=== PATIENT | female | born 1965 | race Two or more races ===

== ENCOUNTER 2018-12-07 21:46 | Observation (INO) | payer SELFPAY ==
[2018-12-07] MEDS ORDERED: MORPHINE SULFATE 10 MG/ML INJ IV ONE (22:19)
[2018-12-07] MEDS ORDERED: ONDANSETRON HCL INJ/PF 4 MG/2 ML SDV IV ONE (22:20)
--- NOTE | 2018-12-07 22:22 | ER Document Report ---
ED GI/ - General Chief Complaint: Abdominal Pain Stated Complaint: Abdominal Pain Time Seen by Provider: 12/07/18 22:14 Notes: Patient is a 53-year-old female that comes to the emergency department for chief complaint of sharp pain in her epigastric and right upper quadrant areas of the abdomen. Symptoms started shortly after eating dinner, she was eating shrimp. He states pain started about 6 PM, she vomited. Pain radiates around to her back as well. She denies lower abdominal pain, chest pain, ear/chills, difficulty breathing. She denies any surgeries or diagnosed medical problems other than anxiety. Only medication is for anxiety. She denies smoking, alcohol, recreational drugs. TRAVEL OUTSIDE OF THE [place] IN LAST 30 DAYS: No - Related Data Allergies/Adverse Reactions: No Known Allergies Allergy (Unverified 12/07/18 22:01) Past Medical History - General Information source: Patient - Social History Smoking Status: Never Smoker Frequency of alcohol use: None Drug Abuse: None Lives with: Family Family History: Reviewed & Not Pertinent Psychiatric Medical History: Reports: Hx Anxiety Surgical Hx: Negative - Immunizations Hx Diphtheria, Pertussis, Tetanus Vaccination: Yes Review of Systems - Review of Systems Constitutional: No symptoms reported EENT: No symptoms reported Cardiovascular: No symptoms reported Respiratory: No symptoms reported Gastrointestinal: See HPI Genitourinary: No symptoms reported Female Genitourinary: No symptoms reported Musculoskeletal: No symptoms reported Skin: No symptoms reported Hematologic/Lymphatic: No symptoms reported Neurological/Psychological: No symptoms reported Physical Exam - Vital signs Vitals: Temp Pulse BP Pulse Ox 98.2 F 59 L 148/64 H 100 12/07/18 22:02 12/07/18 22:02 12/07/18 22:02 12/07/18 22:02 - Notes Notes: GENERAL: Alert, appears very uncomfortable HEAD: Normocephalic, atraumatic. EYES: Pupils equal, round, and reactive to light. Extraocular movements intact. ENT: Oral mucosa moist, tongue midline. Oropharynx unremarkable. Airway patent. LUNGS: Clear to auscultation bilaterally, no wheezes, rales, or rhonchi. No respiratory distress. HEART: Regular rate and rhythm. No murmur ABDOMEN: Very tender in the epigastric and right upper quadrant areas with some guarding. Lower abdomen is completely benign. No rigidity or obvious distention. GENITOURINARY: Deferred EXTREMITIES: Moves all 4 extremities spontaneously. No edema, normal radial and dorsalis pedis pulses bilaterally. No cyanosis. BACK: no cervical, thoracic, lumbar midline tenderness. No saddle anesthesia, normal distal neurovascular exam. Moves all extremities in full range of motion. NEUROLOGICAL: Alert and oriented x3. Normal speech. Cranial nerves II through XII grossly intact. SKIN: Warm, dry, normal turgor. No rashes or lesions noted. Course - Re-evaluation Re-evalutation: Patient is Cymro-speaking, I offered staging technician, patient requests her family interpret for her instead. She does speak some Bruneian as well. Initially she is very uncomfortable in appearance, after medications she was reevaluated and is much more comfortable. She does have a lot of pain in the right upper quadrant. CBC, chemistry unremarkable. Lipase unremarkable. Ultrasound showing gallstones, gallbladder wall thickening, pericholecystic fluid, consistent with acute cholecystitis. No other concerning findings. Patient has been kept n.p.o. I discussed with patient, patient given Zosyn. Will discuss with surgicalist for admission and surgery. Patient and family state understanding and agreement with this plan. Discussed with Dr. Costa, patient will be admitted to his service. - Vital Signs Vital signs: Temp Pulse Resp BP Pulse Ox 97.5 F 66 18 118/76 98 12/08/18 03:31 12/08/18 03:31 12/08/18 03:31 12/08/18 03:31 12/08/18 03:31 - Laboratory Result Diagrams: 12/07/18 22:15 12/07/18 22:15 Laboratory results interpreted by me: 12/07/18 12/07/18 22:15 22:31 Potassium 3.5 L Glucose 129 H Urine Glucose (UA) 50 H Urine Ketones 25 H Ur Leukocyte Esterase TRACE H Urine Ascorbic Acid 20 H - EKG Interpretation by Me Additional EKG results interpreted by me: EKG shows sinus rhythm at a rate of 61, no T wave inversions or ST segment changes in consecutive leads. QTc 415. Normal axis. Discharge - Discharge Clinical Impression: Acute cholecystitis Condition: Stable Disposition: ADMITTED OBSERVATION Admitting Provider: Surgicalist Unit Admitted: Surgical Floor
[2018-12-07 22:43] LABS: ABSOLUTE BASOPHILS # (AUTO) 0.1 10^3/uL (0.0-0.2); ABSOLUTE LYMPHOCYTES (AUTO) 2.3 10^3/uL (0.5-4.7); ABSOLUTE MONOCYTES (AUTO) 0.3 10^3/uL (0.1-1.4); ABSOLUTE NEUT (AUTO) 4.7 10^3/uL (1.7-8.2); BASOPHILS % (AUTO) 0.7 % (0-2); EOSINOPHILS % (AUTO) 0.5 % (0-6); HEMATOCRIT 41.1 % (36.0-47.0); LYMPHOCYTES % (AUTO) 30.6 % (13-45); MEAN CORPUSCULAR HEMOGLOBIN 29.1 pg (27.0-33.4); MEAN CORPUSCULAR HGB CONC 33.9 g/dL (32.0-36.0); MEAN CORPUSCULAR VOLUME 86 fl (80-97); MONOCYTES % (AUTO) 4.3 % (3-13); PLATELET COUNT 261 10^3/uL (150-450); RED CELL DISTRIBUTION WIDTH 13.1 % (11.5-14.0); SEGMENTED NEUTROPHILS % (AUTO) 63.9 % (42-78); TOTAL CELLS COUNTED % (AUTO) 100 %; WHITE BLOOD COUNT 7.4 10^3/uL (4.0-10.5)
[2018-12-07 23:09] LABS: APPEARANCE,URINE CLEAR; BILIRUBIN,URINE NEGATIVE (NEGATIVE); COLOR,URINE YELLOW; GLUCOSE, URINE 50 mg/dL (NEGATIVE); KETONES,URINE 25 mg/dL (NEGATIVE); URINE SPECIFIC GRAVITY 1.023
[2018-12-07 23:10] LABS: LEUKOCYTE ESTERASE,URINE TRACE (NEGATIVE); NITRITE,URINE NEGATIVE (NEGATIVE); PROTEIN,URINE NEGATIVE (NEGATIVE); UROBILINOGEN,URINE NEGATIVE mg/dL (<2.0)
[2018-12-07 23:25] LABS: ALANINE AMINOTRANSFERASE 24 U/L (9-52); ALBUMIN 4.3 g/dL (3.5-5.0); ALKALINE PHOSPHATASE 63 U/L (38-126); ANION GAP 9 (5-19); ASPARTATE AMINO TRANSFERASE 24 U/L (14-36); BILIRUBIN,DIRECT 0.2 mg/dL (0.0-0.4); BILIRUBIN,TOTAL 0.7 mg/dL (0.2-1.3); BLOOD UREA NITROGEN 17 mg/dL (7-20); CALCIUM 9.6 mg/dL (8.4-10.2); CARBON DIOXIDE 27 mmol/L (22-30); CHLORIDE 104 mmol/L (98-107); GLUCOSE 129 mg/dL (75-110); LIPASE 110.2 U/L (23-300); POTASSIUM 3.5 mmol/L (3.6-5.0); SODIUM 140.1 mmol/L (137-145); TOTAL PROTEIN 7.3 g/dL (6.3-8.2)
[2018-12-08] MEDS ORDERED: NORMAL SALINE 1000 ML 1,000 ML IV ONE (01:17)
--- NOTE | 2018-12-08 01:29 | RADIOLOGY REPORT (SQ) ---
US ABDOMEN LIMITED EXAM DATE: 12/07/2018 10:20 PM CDT HISTORY: Right upper quadrant pain. COMPARISON: None. TECHNIQUE: Grayscale and color Doppler imaging of the right upper quadrant was performed. FINDINGS: The liver has normal echotexture with a focal 1.9 cm hyperechoic lesion which is nonspecific but may represent a hemangioma. The main portal vein has normal hepatopetal flow. Multiple shadowing gallstones are present. The gallbladder wall thickening measuring 6 mm. There is surrounding pericholecystic fluid. The common bile duct measures 4 mm. The visualized portions of the pancreas are unremarkable. No hydronephrosis or shadowing renal stones are identified. The right kidney is normal in size. The visualized portions of the IVC and aorta are patent. IMPRESSION: 1. Gallstones with gallbladder wall thickening and surrounding pericholecystic fluid, most likely representing acute cholecystitis. 2. 2 cm echogenic lesion in the liver which may represent a hemangioma. This may be confirmed with cross-sectional imaging.
[2018-12-08] MEDS ORDERED: PIPERACILLIN/TAZOBACTAM 3.375 GM VIAL IV ONE (01:35)
[2018-12-08] MEDS ORDERED: NORMAL SALINE 1000 ML 1,000 ML IV PRN (01:45)
[2018-12-08] MEDS ORDERED: DEXTROSE 5%-LACTATED RINGERS 1,000 ML IV PRN (01:48)
[2018-12-08] MEDS ORDERED: MORPHINE SULFATE 10 MG/ML INJ IV PRN ×2 (01:48→11:40)
[2018-12-08] MEDS ORDERED: ONDANSETRON HCL INJ/PF 4 MG/2 ML SDV IV PRN (01:48)
--- NOTE | 2018-12-08 07:54 | PDOC H&P ---
History of Present Illness Admission Date/PCP: 12/08/18 02:08 Patient complains of: Right upper quadrant pain, nausea, vomiting History of Present Illness: KANDI BLACK is a 53 year old female with a 2-day history of right upper quadrant pain, nausea, and vomiting. Her pain began after eating. Her vomiting has been intractable. Her pain is sharp and stabbing. At its worst it is 10 out of 10. Her pain is improved after getting morphine. Eating made the pain worse. Her pain is localized to the right upper quadrant. She denies any radiation. She denies any other significant medical comorbidity. Patient presented to the emergency department where a right upper quadrant ultrasound was performed. This showed acute cholecystitis. The patient is a [place] speaker, however she reports that she understands Portuguese very well. Past Medical History Psychiatric Medical History: Reports: General Anxiety Disorder Social History Lives with: Family Smoking Status: Never Smoker Hx Recreational Drug Use: No Hx Prescription Drug Abuse: No Family History Family History: Reviewed & Not Pertinent Parental Family History Reviewed: Yes Children Family History Reviewed: Yes Sibling(s) Family History Reviewed.: Yes Medication/Allergy Allergies/Adverse Reactions: No Known Allergies Allergy (Unverified 12/07/18 22:01) Review of Systems Constitutional: ABSENT: anorexia, chills, fatigue, fever(s), headache(s) Eyes: ABSENT: visual disturbances Ears: ABSENT: hearing changes Nose, Mouth, and Throat: ABSENT: mouth pain, sore throat Cardiovascular: ABSENT: chest pain, dyspnea on exertion Respiratory: ABSENT: cough Gastrointestinal: PRESENT: abdominal pain, bloating, nausea, vomiting. ABSENT: hematemesis, hematochezia, melena Genitourinary: ABSENT: dysuria Musculoskeletal: ABSENT: back pain Integumentary: ABSENT: rash Neurological: ABSENT: confusion, convulsions, dizziness Psychiatric: PRESENT: anxiety. ABSENT: depression Hematologic/Lymphatic: ABSENT: easy bleeding, easy bruising Physical Exam Vital Signs: Temp Pulse Resp BP Pulse Ox 97.5 F 66 18 118/76 98 12/08/18 03:31 12/08/18 03:31 12/08/18 03:31 12/08/18 03:31 12/08/18 03:31 Intake & Output 12/07/18 12/08/18 12/09/18 06:59 06:59 06:59 Weight 53.2 kg General appearance: PRESENT: no acute distress, cooperative Head exam: PRESENT: atraumatic, normocephalic Eye exam: PRESENT: EOMI, PERRLA. ABSENT: scleral icterus Mouth exam: PRESENT: moist, neck supple Neck exam: ABSENT: meningismus, tenderness, thyromegaly, tracheal deviation Respiratory exam: PRESENT: clear to auscultation jonathon, unlabored. ABSENT: tachypnea, wheezes Cardiovascular exam: PRESENT: RRR Pulses: PRESENT: normal radial pulses Vascular exam: PRESENT: normal capillary refill GI/Abdominal exam: PRESENT: Musa's sign, soft, tenderness - right upper quadrant. ABSENT: distended, firm Rectal exam: PRESENT: deferred Extremities exam: ABSENT: clubbing Musculoskeletal exam: ABSENT: deformity Neurological exam: PRESENT: alert, awake, oriented to person, oriented to place, oriented to time, oriented to situation Psychiatric exam: ABSENT: agitated, anxious, depressed Focused psych exam: ABSENT: delusional Skin exam: ABSENT: cyanosis, erythema, jaundice Results Laboratory Results: 12/07/18 22:15 12/07/18 22:15 12/07/18 12/07/18 12/07/18 22:15 22:15 22:31 WBC 7.4 RBC 4.80 Hgb 14.0 Hct 41.1 MCV 86 MCH 29.1 MCHC 33.9 RDW 13.1 Plt Count 261 Seg Neutrophils % 63.9 Lymphocytes % 30.6 Monocytes % 4.3 Eosinophils % 0.5 Basophils % 0.7 Absolute Neutrophils 4.7 Absolute Lymphocytes 2.3 Absolute Monocytes 0.3 Absolute Eosinophils 0.0 Absolute Basophils 0.1 Sodium 140.1 Potassium 3.5 L Chloride 104 Carbon Dioxide 27 Anion Gap 9 BUN 17 Creatinine 0.65 Est GFR ( Amer) > 60 Est GFR (Non-Af Amer) > 60 Glucose 129 H Calcium 9.6 Total Bilirubin 0.7 AST 24 ALT 24 Alkaline Phosphatase 63 Total Protein 7.3 Albumin 4.3 Lipase 110.2 Urine Color YELLOW Urine Appearance CLEAR Urine pH 7.0 Ur Specific [place] 1.023 Urine Protein NEGATIVE Urine Glucose (UA) 50 H Urine Ketones 25 H Urine Blood NEGATIVE Urine Nitrite NEGATIVE Ur Leukocyte Esterase TRACE H Urine WBC (Auto) 4 Urine RBC (Auto) 5 Impressions: Abdomen Ultrasound 12/07/18 22:20 IMPRESSION: 1. Gallstones with gallbladder wall thickening and surrounding pericholecystic fluid, most likely representing acute cholecystitis. 2. 2 cm echogenic lesion in the liver which may represent a hemangioma. This may be confirmed with cross-sectional imaging. Assessment & Plan - Diagnosis (1) Acute cholecystitis Is this a current diagnosis for this admission?: Yes - Plan Summary Plan Summary: This is a 53-year-old female with right upper quadrant pain, nausea, vomiting, and ultrasound evidence of acute cholecystitis. The patient reports that she understands Portuguese very well. I have asked her if she would like the assistance of a mycologist, and she declined. I have discussed her medical care at length. I have recommended cholecystectomy as treatment for her acute cholecystitis. The patient has agreed to this. I will start the patient on Zosyn. Risks/benefits discussed, informed consent obtained, and all questions answered.
[2018-12-08] MEDS ORDERED: BUPIVACAINE HCL 0.25 % INJ/PF (2.5 MG/1 ML) 30 ML VIAL ONE (08:43)
[2018-12-08] MEDS ORDERED: PIPERACILLIN SODIUM/TAZOBACTAM 3.375 GM in NORMAL SALINE 100 ML IV SCH (09:00)
[2018-12-08] MEDS ORDERED: FENTANYL CITRATE INJ/PF 250 MCG/5 ML AMPULE ONE (09:43)
[2018-12-08] MEDS ORDERED: HYDROMORPHONE HCL INJ/PF 2 MG/ML AMPULE ONE (09:43)
[2018-12-08] MEDS ORDERED: PROPOFOL INJ 200 MG/20 ML VIAL IV ONE (09:43)
[2018-12-08] MEDS ORDERED: MIDAZOLAM 2 MG/2 ML INJ ONE (09:43)
--- NOTE | 2018-12-08 11:24 | Operative Report ---
Nonrecallable Operative Report DATE OF SURGERY: 12/08/18 PREOPERATIVE DIAGNOSIS: Acute cholecystitis POSTOPERATIVE DIAGNOSIS: Acute cholecystitis OPERATION: Laparoscopic cholecystectomy SURGEON: JEN NARANJO ANESTHESIA: GA TISSUE REMOVED OR ALTERED: Gallbladder COMPLICATIONS: None apparent ESTIMATED BLOOD LOSS: 30 cc PROCEDURE: Drains/implants: None. Procedure in detail: After informed consent was obtained, the patient was brought to the operating room and laid in the supine position. The area of the abdomen was prepped and draped in a normal sterile fashion. A supraumbilical incision was created with a 15 blade scalpel. Dissection was carried through the subcutaneous tissue using sharp and blunt dissection. The linea alba fascia was incised sharply, the abdomen was entered sharply. The balloon trocar was inserted, and pneumoperitoneum was achieved. A subxiphoid 5 mm port was placed under direct laparoscopic visualization. 2 more 5 mm trochars were placed on the right upper quadrant in similar fashion. Atraumatic graspers were placed through the 5 mm ports. The gallbladder was retracted cephalad and laterally. Dissection was begun in the triangle of [place]. There was a dense inflammatory reaction all around the gallbladder, including the infundibulum. Dissection was performed very meticulously at the infundibulum. The cystic duct and cystic artery were fully visualized and skeletonized, seeing the liver through the triangle. Once the critical view of safety was obtained, the cystic duct and cystic artery were clipped and cut with laparoscopic instruments. The gallbladder was then removed from the liver using Bovie electro-cautery. The gallbladder was grasped with a large clamp and pulled out through the umbilicus. The camera was then reinserted. The hilum was inspected. It was found to be free of any leakage of blood or bile. Once this was confirmed, the 5 mm trochars were removed under direct laparoscopic visualization. The supraumbilical trocar was then removed, and pneumoperitoneum was relieved. The supraumbilical fascia was closed using 0 Vicryl suture in [id number] fashion. The overlying skin was closed using 4-0 Vicryl Rapide suture in subcuticular fashion. Dressings were placed, and the procedure was concluded. All sponge, instrument, and needle counts were correct x2. Condition: Stable.
[2018-12-08] MEDS ORDERED: HYDROCODONE/ACETAMINOPHEN 10-325 MG TABLET PO PRN (11:32)
[2018-12-08] MEDS ORDERED: MEPERIDINE HCL/PF INJ 25 MG/1 ML DISP.SYRIN IV PRN (11:40)
[2018-12-08] MEDS ORDERED: DIPHENHYDRAMINE HCL 50 MG/ML VIAL IV PRN (11:40)
[2018-12-08] MEDS ORDERED: PROMETHAZINE HCL INJ 25 MG/1 ML VIAL IV PRN (11:40)
[2018-12-08] MEDS ORDERED: FENTANYL CITRATE INJ/PF 100 MCG/2 ML AMPUL IV PRN ×3 (11:40)
[2018-12-08] MEDS ORDERED: KETOROLAC TROMETHAMINE INJ/PF 30 MG/1 ML SDV ONE (12:06)
[2018-12-08] MEDS ORDERED: ACETAMINOPHEN 1,000 MG/100 ML RTUPB IV ONE (12:07)
[2018-12-08] MEDS: KETOROLAC TROMETHAMINE INJ/PF 30 MG/1 ML SDV IV SCH ×2 (14:30→21:29)
[2018-12-08] MEDS ORDERED: GLYCOPYRROLATE 1 MG/5 ML VIAL ONE (14:47)
[2018-12-08] MEDS ORDERED: PHENYLEPHRINE HCL INJ/PF 10 MG/1 ML SDV ONE (14:47)
[2018-12-08] MEDS ORDERED: DEXAMETHASONE SOD PHOSPHATE INJ 4 MG/1 ML VIAL ONE (14:47)
[2018-12-08] MEDS ORDERED: NEOSTIGMINE METHYLSULFATE 10 MG/10 ML VIAL ONE (14:47)
[2018-12-08] MEDS ORDERED: SUCCINYLCHOLINE CHLORIDE INJ 200 MG/10 ML VIAL ONE (14:47)
[2018-12-08] MEDS ORDERED: ONDANSETRON HCL INJ/PF 4 MG/2 ML SDV ONE (14:47)
[2018-12-08] MEDS ORDERED: ROCURONIUM BROMIDE INJ 50 MG/5 ML VIAL IV ONE (14:47)
[2018-12-08] MEDS: FAMOTIDINE 20 MG TABLET PO SCH (21:30)
--- NOTE | 2018-12-09 05:52 | PDOC DISCHARGE SUMMARY ---
General - Admit/Disc Date/PCP Admission Date/Primary Care Provider: 12/08/18 02:08 Discharge Date: 12/09/18 - Discharge Diagnosis (1) Acute cholecystitis Is this a current diagnosis for this admission?: Yes - Additional Information Resuscitation Status: Full Code Discharge Diet: As Tolerated Discharge Activity: No Lifting Over 10 Pounds Home Medications: No Home Medications 12/08/18 History of Present Illness History of Present Illness: KANDI BLACK is a 53 year old female with a 2-day history of right upper quadrant pain, nausea, and vomiting. Her pain began after eating. Her vomiting has been intractable. Her pain is sharp and stabbing. At its worst it is 10 out of 10. Her pain is improved after getting morphine. Eating made the pain worse. Her pain is localized to the right upper quadrant. She denies any radiation. She denies any other significant medical comorbidity. Patient presented to the emergency department where a right upper quadrant ultrasound was performed. This showed acute cholecystitis. The patient is a [place]ian speaker, however she reports that she understands Venezuelan very well. Hospital Course Hospital Course: The patient was found to have acute cholecystitis, and was taken to the operating room for definitive surgical care. The patient underwent laparoscopic cholecystectomy, which was successful. The patient was taken to the floor in stable condition. She began ambulating, tolerating diet, and by 12/09/2018 it was felt that she had reached maximal hospital benefit. At this time she is fit for discharge. Physical Exam Vital Signs: Temp Pulse Resp BP Pulse Ox 98.2 F 71 14 139/66 H 99 12/08/18 23:30 12/08/18 23:30 12/08/18 23:30 12/08/18 23:30 12/08/18 23:30 Intake & Output 12/07/18 12/08/18 12/09/18 06:59 06:59 06:59 Intake Total 2009 Output Total 1994 Weight 53.2 kg Results Laboratory Results: 12/07/18 22:15 12/07/18 22:15 Impressions: Abdomen Ultrasound 12/07/18 22:20 IMPRESSION: 1. Gallstones with gallbladder wall thickening and surrounding pericholecystic fluid, most likely representing acute cholecystitis. 2. 2 cm echogenic lesion in the liver which may represent a hemangioma. This may be confirmed with cross-sectional imaging. Qualifiers - * PATIENT BEING DISCHARGED WITH ANY OF THE FOLLOWING DIAGNOSIS: No Acute Heart Failure - Is this a Heart Failure Patient?: No Plan Discharge Plan: Discharge home. Diet as tolerated. Activity: No lifting greater than 10 pounds x 2 weeks. Follow-up with me in 7 to 10 days. [place] 10/325 mg p.o. every 6 h ours as needed for pain. Ibuprofen 800 mg p.o. 3 times daily with meals. Okay to shower starting on Sunday. No tub baths or swimming pools x2 weeks. Time Spent: Less than 30 Minutes
[2018-12-09] MEDS: KETOROLAC TROMETHAMINE INJ/PF 30 MG/1 ML SDV IV SCH (05:55)
[2018-12-09] MEDS: FAMOTIDINE 20 MG TABLET PO SCH (09:34)
[2018-12-09 10:02] VITALS: BP 119/62
== END 2018-12-09 11:55 | disposition home or self-care (01) ==
LOC: ER 21:46 → EH 12-08 02:08 → 2N 12-08 03:25
PROVIDERS: ADMIT Surgery; ATTEND Surgery
PROC: 0FT44ZZ Resection of Gallbladder, Percutaneous Endoscopic Approach (ICD-10-PCS; principal; 2018-12-08 10:00)
DX: K80.10 Calculus of gallbladder with chronic cholecystitis without obstruction (principal); F41.1 Generalized anxiety disorder
CPT/HCPCS: 99284; 96361; 96374; 96375; 36415; 83690; 85025; 81025; 80053; 81001; 88304 ×2; 76705; 00790; 47562; G0378 ×3; J2250; J3490 ×2; J1100; J3010; J1885 ×2; J2270; J2710; J2370; J0330; J2405 ×2; J7121; J7050; J7030; J2704; J2543; J0131; 790; J1170